=== PATIENT | female | born 1980 ===

== ENCOUNTER 2018-06-05 09:58 | Emergency (ER) | payer OTHER ==
[~2018-06-05] VITALS: Ht 162.6 cm; Wt 82.6 kg
[2018-06-05] MEDS ORDERED: FORTAMET1000 MG (10:23)
[2018-06-05] MEDS ORDERED: SKELAXIN800 MG PO (14:27)
[2018-06-05] MEDS ORDERED: KETO10TA2 PO (14:27)
== END 2018-06-05 14:50 | disposition home or self-care (01) ==
LOC: ER 09:58
DX: R07.89 Other chest pain (principal); M94.0 Chondrocostal junction syndrome [Tietze]